=== PATIENT | female | born 1945 | race Caucasian/White ===

== ENCOUNTER 2018-03-24 19:25 | Inpatient (IN) ==
[2018-03-24] MEDS ORDERED: ONDANSETRON 4 MG/2 ML VIAL IV PRN (23:11)
[2018-03-24] MEDS ORDERED: MORPHINE 4 MG/1 ML VIAL IV PRN (23:11)
[2018-03-24] MEDS ORDERED: ASPIRIN EC 81 MG TABLET PO SCH (23:30)
[2018-03-24] MEDS: LEVOFLOXACIN INJ 750 MG in PREMIX 1 EACH IV SCH (23:49)
[2018-03-24] MEDS: SODIUM CHLORIDE 0.9% 1,000 ML IV SCH (23:49)
[2018-03-24] MEDS: ESCITALOPRAM 10 MG TABLET PO SCH (23:53)
[2018-03-24] MEDS: TAMSULOSIN 0.4 MG CAPSULE PO SCH (23:53)
[2018-03-25] MEDS: LEVOTHYROXINE 137 MCG TABLET PO SCH (06:16)
[2018-03-25 06:36] LABS: Basophils % 0.3 % (0.0-0.8); Eosinophils # 0.1 10*3/uL (0.0-0.87); Eosinophils % 1.4 % (0.00-10.9); Hematocrit 38.3 VOL% (35.7-47.0); Hemoglobin 12.8 GM/DL (12.0-16.0); Immature Granulocytes % 0.4 %; Immature Granulocytes Absolute 0.03 #; Lymphocytes # 1.4 10*3/uL (1.4-4.0); Lymphocytes % 20.1 % (21.3-54.2); Mean Corpuscular HGB Conc 33.4 GM/DL (32-36); Mean Corpuscular Hemoglobin 31 PG (27-34); Mean Corpuscular Volume 92.1 FL (87-102); Mean Platelet Volume 9.8 FL (9.6-12.0); Monocytes # 0.9 10*3/uL (0.11-0.8); Monocytes % 12.9 % (1.7-12.7); Neutrophils # 4.5 10*3/uL (1.4-7.4); Neutrophils % 64.9 % (38.7-73.9); Platelet Count 171 T/CUMM (130-400); Red Blood Count 4.16 MC/CUMM (3.8-5.5)
[2018-03-25 07:02] LABS: Apearance,Urine CLOUDY (Clear); Bilirubin,Urine Negative (Negative); Blood, Urine Moderate mg/dL (Negative); Glucose,Urine (UA) Negative (Negative); Ketones,Urine Negative (Negative); Nitrite,Urine Negative (Negative); Protein,Urine Negative; RBC,Urine 70 /HPF (0-4); Squamous Epithelial Cell,Urine Occasional /HPF (0-10); Urine Color Amber (Yellow); WBC,Urine 912 /HPF (0-6)
[2018-03-25 07:09] LABS: Albumin 2.5 G/DL (3.4-5.0); Bilirubin,Total 0.9 MG/DL (0.2-1.0); Calcium 8.6 MG/DL (8.5-10.1); Osmolality,Calculated 281.3 MOS/KG (273-304); Risk Ratio 6.13; Total Protein 6.3 G/DL (6.4-8.3); VLDL CHOLESTEROL 24.6 MG/DL
[2018-03-25] MEDS ORDERED: PANTOPRAZOLE 40 MG TABLET PO SCH (09:00)
[2018-03-25] MEDS: SODIUM CHLORIDE 0.9% 1,000 ML IV SCH ×2 (10:00→20:40)
[2018-03-25] MEDS ORDERED: ENOXAPARIN 40 MG/0.4 ML SYRINGE SUBCUT SCH (11:00)
[2018-03-25] MEDS: GENTAMICIN INJ 160 MG in SODIUM CHLORIDE 0.9% 100 ML IV SCH ×2 (11:18→20:45)
[2018-03-25] MEDS ORDERED: ACETAMINOPHEN 325 MG TABLET PO PRN (20:18)
[2018-03-25] MEDS: ESCITALOPRAM 10 MG TABLET PO SCH (20:41)
[2018-03-25] MEDS: TAMSULOSIN 0.4 MG CAPSULE PO SCH (20:42)
[2018-03-26] MEDS: LEVOFLOXACIN INJ 750 MG in PREMIX 1 EACH IV SCH (00:20)
[2018-03-26] MEDS: GENTAMICIN INJ 160 MG in SODIUM CHLORIDE 0.9% 100 ML IV SCH (03:24)
[2018-03-26 04:30] VITALS: BP 115/65
[2018-03-26] MEDS: LEVOTHYROXINE 137 MCG TABLET PO SCH (05:48)
[2018-03-26] MEDS ORDERED: TOBRAMYCIN INJ 80 MG in SODIUM CHLORIDE 0.9% 100 ML IV ONE (06:00)
== END 2018-03-26 05:45 | disposition home or self-care (01) | DRG 694 ==
LOC: SUATTDRO 21:19 → N.5E 21:19
PROVIDERS: ADMIT Emergency Medicine; ATTEND Internal Medicine Geriatric Medicine

== ENCOUNTER 2019-11-16 15:34 | Observation (INO) ==
[2019-11-16] MEDS ORDERED: GLUCAGON 1 MG VIAL IM PRN (18:48)
[2019-11-16] MEDS ORDERED: MAGNESIUM SULF RIDER 4 GM in PREMIX 1 EACH IV PRN (18:48)
[2019-11-16] MEDS ORDERED: ONDANSETRON 4 MG/2 ML VIAL IV PRN (18:48)
[2019-11-16] MEDS ORDERED: MAGNESIUM SULF RIDER 2 GM in PREMIX 1 EACH IV PRN (18:48)
[2019-11-16] MEDS ORDERED: DEXTROSE 50% 25 GM/50 ML SYRINGE IV PRN (18:48)
[2019-11-16] MEDS ORDERED: hydrALAZINE 20 MG/1 ML VIAL IV PRN (18:48)
[2019-11-16] MEDS ORDERED: MAGNESIUM SULF RIDER 2 GM in PREMIX 1 EACH IV ONE (19:06)
[2019-11-16 19:31] LABS: Albumin 3.5 G/DL (3.4-5.0); Bilirubin,Total 0.5 MG/DL (0.2-1.0)
[2019-11-16 19:38] LABS: Thyroid Stimulating Hormone 0.426 uIU/ml (0.358-3.74)
[2019-11-16] MEDS: LOSARTAN 25 MG TABLET PO SCH (19:58)
[2019-11-16] MEDS: FUROSEMIDE 20 MG/2 ML VIAL IV SCH (19:59)
[2019-11-16] MEDS ORDERED: ENOXAPARIN 40 MG/0.4 ML SYRINGE SUBCUT SCH (21:00)
[2019-11-16] MEDS ORDERED: ESCITALOPRAM 10 MG TABLET PO SCH (21:00)
[2019-11-16] MEDS ORDERED: ASPIRIN EC 81 MG TABLET PO SCH (21:00)
[2019-11-16] MEDS: INSULIN REGULAR 100 UNIT/ML SUBCUT SCH (21:52)
[2019-11-17 01:48] LABS: Basophils % 0.4 % (0.0-0.8); Eosinophils # 0.1 10*3/uL (0.0-0.87); Eosinophils % 1.6 % (0.00-10.9); Hematocrit 46.8 VOL% (35.7-47.0); Hemoglobin 15.5 GM/DL (12.0-16.0); Immature Granulocytes % 0.7 %; Immature Granulocytes Absolute 0.05 #; Lymphocytes # 1.6 10*3/uL (1.4-4.0); Mean Corpuscular HGB Conc 33.1 GM/DL (32-36); Mean Platelet Volume 9.9 FL (9.6-12.0); Neutrophils % 65.3 % (38.7-73.9); Platelet Count 173 T/CUMM (130-400); Red Blood Count 5.03 MC/CUMM (3.8-5.5); Red Cell Distribution Width 12.4 % (9.3-17.3)
[2019-11-17 02:06] LABS: Albumin 3.7 G/DL (3.4-5.0); Bilirubin,Total 0.6 MG/DL (0.2-1.0); Calcium 8.8 MG/DL (8.5-10.1); Osmolality,Calculated 276.4 MOS/KG (273-304); Risk Ratio 6.19; Total Protein 7.3 G/DL (6.4-8.3); VLDL CHOLESTEROL 45.4 MG/DL
[2019-11-17] MEDS ORDERED: LEVOTHYROXINE 137 MCG TABLET PO SCH (06:00)
[2019-11-17 07:21] VITALS: BP 100/52
[2019-11-17] MEDS: INSULIN REGULAR 100 UNIT/ML SUBCUT SCH ×2 (08:10→12:35)
[2019-11-17] MEDS: LOSARTAN 25 MG TABLET PO SCH (08:10)
[2019-11-17] MEDS ORDERED: PANTOPRAZOLE 40 MG TABLET PO SCH (09:00)
[2019-11-17] MEDS ORDERED: ASPIRIN CHEW 81 MG TABLET PO SCH (09:00)
[2019-11-17] MEDS: FUROSEMIDE 20 MG/2 ML VIAL IV SCH (09:16)
[2019-11-17] MEDS ORDERED: INSULIN GLARGINE 100 UNIT/ML SUBCUT SCH (09:30)
[2019-11-17] MEDS ORDERED: SODIUM CHLORIDE 0.9% 1,000 ML IV SCH (09:30)
[2019-11-17] MEDS ORDERED: metFORMIN 500 MG TABLET PO SCH (10:06)
[2019-11-17] MEDS ORDERED: PNEUMOCOCCAL VACCINE (13 VALENT) 0.5 ML SYRINGE IM ONE (12:31)
== END 2019-11-17 16:07 | disposition home or self-care (01) ==
LOC: SUATTDRO 17:43 → N.ICU 17:43 → INTOOBSV 17:43
PROVIDERS: ADMIT Internal Medicine; ATTEND Internal Medicine

== ENCOUNTER 2019-12-11 09:47 | Inpatient (IN) ==
[2019-12-11 10:18] LABS: Basophils % 0.3 % (0.0-0.8); Eosinophils # 0.1 10*3/uL (0.0-0.87); Eosinophils % 1.4 % (0.00-10.9); Hematocrit 44.1 VOL% (35.7-47.0); Hemoglobin 14.2 GM/DL (12.0-16.0); Immature Granulocytes % 0.3 %; Immature Granulocytes Absolute 0.02 #; Lymphocytes # 2.2 10*3/uL (1.4-4.0); Mean Corpuscular HGB Conc 32.2 GM/DL (32-36); Mean Corpuscular Volume 95.2 FL (87-102); Mean Platelet Volume 9.7 FL (9.6-12.0); Monocytes % 7.3 % (1.7-12.7); Neutrophils % 58.7 % (38.7-73.9); Platelet Count 242 T/CUMM (130-400); Red Blood Count 4.63 MC/CUMM (3.8-5.5); Red Cell Distribution Width 12.4 % (9.3-17.3)
[2019-12-11 10:38] LABS: Albumin 3.8 G/DL (3.4-5.0); Bilirubin,Total 0.5 MG/DL (0.2-1.0); Calcium 9.8 MG/DL (8.5-10.1); Osmolality,Calculated 283.5 MOS/KG (273-304); Total Protein 7.4 G/DL (6.4-8.3)
[2019-12-11] MEDS ORDERED: ALUMINUM/MAGNES/SIMETH MAX STR 30 ML UDCUP PO PRN (11:15)
[2019-12-11] MEDS ORDERED: ZALEPLON 5 MG CAPSULE PO PRN (11:15)
[2019-12-11] MEDS ORDERED: MORPHINE 4 MG/1 ML VIAL IV PRN (11:15)
[2019-12-11] MEDS ORDERED: ONDANSETRON 4 MG/2 ML VIAL IV PRN (11:15)
[2019-12-11] MEDS ORDERED: MAGNESIUM SULF RIDER 4 GM in PREMIX 1 EACH IV PRN (11:15)
[2019-12-11] MEDS ORDERED: MAGNESIUM SULF RIDER 2 GM in PREMIX 1 EACH IV PRN (11:15)
[2019-12-11] MEDS ORDERED: DOCUSATE SODIUM 100 MG CAPSULE PO PRN (11:15)
[2019-12-11] MEDS ORDERED: GLUCAGON 1 MG VIAL IM PRN (11:27)
[2019-12-11] MEDS ORDERED: DEXTROSE 10% 250 ML BAG IV PRN (11:27)
[2019-12-11 11:53] LABS: PT Patient Result 10.5 SECS (9.6-12.2)
[2019-12-11] MEDS: INSULIN REGULAR 100 UNIT/ML SUBCUT SCH ×2 (15:43→21:14)
[2019-12-11] MEDS: metFORMIN 500 MG TABLET PO SCH (16:24)
[2019-12-11] MEDS: guaiFENesin/CODEINE 5 ML LIQUID PO PRN ×2 (16:27→23:27)
[2019-12-11 18:17] LABS: Apearance,Urine CLEAR (Clear); Bilirubin,Urine Negative (Negative); Blood, Urine Small mg/dL (Negative); Glucose,Urine (UA) Negative (Negative); Ketones,Urine Negative (Negative); Mucus,Urine Occasional /LPF (Occasional); Nitrite,Urine Negative (Negative); Protein,Urine Negative; RBC,Urine 5 /HPF (0-4); Squamous Epithelial Cell,Urine Occasional /HPF (0-10); Urine Color Yellow (Yellow); Urine Specific Gravity 1.021 (1.001-1.035); Urine Urobilinogen < 2.0 EU/DL (0.2-1.0); WBC,Urine 3 /HPF (0-6)
[2019-12-11] MEDS: ESCITALOPRAM 10 MG TABLET PO SCH (21:08)
[2019-12-11] MEDS: AMOXICILLIN/CLAV 875 MG TABLET PO SCH (21:10)
[2019-12-11] MEDS: ASPIRIN EC 81 MG TABLET PO SCH (21:10)
[2019-12-11] MEDS: INSULIN GLARGINE 100 UNIT/ML SUBCUT SCH (21:10)
[2019-12-12 04:31] LABS: Basophils % 0.4 % (0.0-0.8); Eosinophils # 0.4 10*3/uL (0.0-0.87); Eosinophils % 5.5 % (0.00-10.9); Hematocrit 40.6 VOL% (35.7-47.0); Hemoglobin 13.2 GM/DL (12.0-16.0); Immature Granulocytes % 0.1 %; Immature Granulocytes Absolute 0.01 #; Lymphocytes # 3.5 10*3/uL (1.4-4.0); Mean Corpuscular HGB Conc 32.5 GM/DL (32-36); Mean Corpuscular Volume 94.2 FL (87-102); Mean Platelet Volume 10.2 FL (9.6-12.0); Monocytes % 7.8 % (1.7-12.7); Neutrophils % 36.2 % (38.7-73.9); Platelet Count 209 T/CUMM (130-400); Red Blood Count 4.31 MC/CUMM (3.8-5.5); Red Cell Distribution Width 12.2 % (9.3-17.3); White Blood Count 6.9 T/CUMM (4-12)
[2019-12-12 05:00] LABS: Atypical Lymphocytes Few; Eosinophils 4 % (0-10); Hypochromasia Slight; Lymphocytes 47 % (20-55); Segmented Neutrophils 41 % (50-85); Total Cells Counted 100
[2019-12-12 05:01] LABS: Macrocytosis Slight
[2019-12-12 05:08] LABS: Albumin 3.2 G/DL (3.4-5.0); Bilirubin,Total 0.5 MG/DL (0.2-1.0); Calcium 9.1 MG/DL (8.5-10.1); Osmolality,Calculated 281.4 MOS/KG (273-304); Total Protein 6.6 G/DL (6.4-8.3)
[2019-12-12] MEDS: LEVOTHYROXINE 137 MCG TABLET PO SCH (06:24)
[2019-12-12] MEDS: INSULIN REGULAR 100 UNIT/ML SUBCUT SCH ×4 (08:32→21:23)
[2019-12-12] MEDS: metFORMIN 500 MG TABLET PO SCH ×2 (08:51→17:14)
[2019-12-12] MEDS: LOSARTAN 25 MG TABLET PO SCH (08:51)
[2019-12-12] MEDS: PANTOPRAZOLE 40 MG TABLET PO SCH (08:51)
[2019-12-12] MEDS: AMOXICILLIN/CLAV 875 MG TABLET PO SCH ×2 (08:51→21:22)
[2019-12-12] MEDS ORDERED: ceFAZolin 1,000 MG VIAL IRRIG ONE (15:00)
[2019-12-12] MEDS ORDERED: ceFAZolin 1,000 MG in SYRINGE 1 EACH IV ONE (15:00)
[2019-12-12] MEDS ORDERED: DIAZEPAM 5 MG TABLET PO ONE (15:30)
[2019-12-12] MEDS ORDERED: diphenhydrAMINE CAP 25 MG CAPSULE PO ONE (15:30)
[2019-12-12] MEDS ORDERED: IBUPROFEN 400 MG TABLET PO PRN (18:36)
[2019-12-12] MEDS ORDERED: oxyCODONE/ACETAMINOPHEN 5-325 MG TABLET PO PRN (18:36)
[2019-12-12] MEDS ORDERED: DEXTROSE 5% NACL 0.45% 1,000 ML IV SCH (19:00)
[2019-12-12] MEDS: ASPIRIN EC 81 MG TABLET PO SCH (21:22)
[2019-12-12] MEDS: ESCITALOPRAM 10 MG TABLET PO SCH (21:22)
[2019-12-12] MEDS: INSULIN GLARGINE 100 UNIT/ML SUBCUT SCH (21:23)
[2019-12-13 04:58] LABS: Basophils % 0.5 % (0.0-0.8); Eosinophils # 0.2 10*3/uL (0.0-0.87); Eosinophils % 3.8 % (0.00-10.9); Hematocrit 41.4 VOL% (35.7-47.0); Hemoglobin 13.2 GM/DL (12.0-16.0); Immature Granulocytes % 0.3 %; Immature Granulocytes Absolute 0.02 #; Lymphocytes # 2.4 10*3/uL (1.4-4.0); Lymphocytes % 39.1 % (21.3-54.2); Mean Corpuscular HGB Conc 31.9 GM/DL (32-36); Mean Corpuscular Volume 96.1 FL (87-102); Mean Platelet Volume 9.8 FL (9.6-12.0); Monocytes % 9.3 % (1.7-12.7); Platelet Count 212 T/CUMM (130-400); Red Blood Count 4.31 MC/CUMM (3.8-5.5); Red Cell Distribution Width 12.4 % (9.3-17.3); White Blood Count 6.2 T/CUMM (4-12)
[2019-12-13 05:27] LABS: Osmolality,Calculated 284.4 MOS/KG (273-304)
[2019-12-13] MEDS: LEVOTHYROXINE 137 MCG TABLET PO SCH (06:20)
[2019-12-13] MEDS: LOSARTAN 25 MG TABLET PO SCH (08:50)
[2019-12-13] MEDS: AMOXICILLIN/CLAV 875 MG TABLET PO SCH (08:50)
[2019-12-13] MEDS: INSULIN REGULAR 100 UNIT/ML SUBCUT SCH ×2 (08:50→15:45)
[2019-12-13] MEDS: PANTOPRAZOLE 40 MG TABLET PO SCH (08:51)
[2019-12-13] MEDS: metFORMIN 500 MG TABLET PO SCH (08:51)
[2019-12-13 12:24] VITALS: BP 130/69
== END 2019-12-13 14:17 | disposition home or self-care (01) | DRG 243 ==
LOC: N.ED 09:47 → N.EDINP 09:47 → N.TELES 14:21
PROVIDERS: ADMIT Internal Medicine Interventional Cardiology; ATTEND Internal Medicine Interventional Cardiology